=== PATIENT | female | born 2000 | race Caucasian/White ===

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

== ENCOUNTER 2020-11-01 20:08 | Emergency (ER) | payer MEDICAID, OTHER ==
[~2020-11-01] VITALS: Ht 172.7 cm; Wt 86.0 kg
[2020-11-01] MEDS ORDERED: HYDROCODONE/ACETAMINOPHEN 5/325MG TABLET PO ONE (22:15)
[2020-11-01] MEDS ORDERED: BACITRACIN ZINC OINT UDPKT TOP ONE (23:15)
[2020-11-01] MEDS ORDERED: NAPR-681 MT (23:57)
[2020-11-02 01:18] VITALS: BP 118/75
== END 2020-11-02 01:20 | disposition home or self-care (01) ==
LOC: ER 20:08
DX: S93.401A Sprain of unspecified ligament of right ankle, initial encounter (principal); X58.XXXA Exposure to other specified factors, initial encounter; Y93.89 Activity, other specified; Y92.89 Other specified places as the place of occurrence of the external cause; Y99.8 Other external cause status; Z87.19 Personal history of other diseases of the digestive system
CPT/HCPCS: 29515; 73610; 73630; 81025; 99284